=== PATIENT | male | born 1950 | race Caucasian/White ===

== ENCOUNTER 2018-03-03 08:10 | Emergency (ER) | payer OTHER ==
[~2018-03-03] VITALS: Ht 177.8 cm; Wt 68.0 kg
[2018-03-03] MEDS ORDERED: ZITHROMAX500 MG PO (09:42)
== END 2018-03-03 09:48 | disposition home or self-care (01) ==
LOC: ER 08:10
DX: J06.9 Acute upper respiratory infection, unspecified (principal); J11.1 Influenza due to unidentified influenza virus with other respiratory manifestations

== ENCOUNTER 2021-12-15 13:13 | Emergency (ER) | payer OTHER ==
[~2021-12-15] VITALS: Ht 177.8 cm; Wt 65.3 kg
[~2021-12-15 13:13] MED LIST: ZITHROMAX500 MG PO
[2021-12-15] MEDS ORDERED: DICY20TA PO (13:37)
[2021-12-15] MEDS ORDERED: CIPRO500 MG PO (13:38)
== END 2021-12-15 18:54 | disposition home or self-care (01) ==
LOC: ER 13:13
DX: N20.1 Calculus of ureter (principal); Z88.0 Allergy status to penicillin